=== PATIENT | female | born 1935 | race Caucasian/White ===

== ENCOUNTER 2021-05-10 12:47 | Inpatient (IN) | payer OTHER ==
[~2021-05-10] VITALS: Ht 162.6 cm; Wt 46.9 kg
--- NOTE | ~2021-05-10 | PROC ---
[address] [address] PROCEDURE REPORT Name: FREYA MCGOWAN Room: [address] ADM IN M.R.#: [id number] Admission: 05/10/21 Attend Phys: Chris Ratliff Discharge: Date of : 39 Report #: [id number] THIS REPORT FOR: cc: FAM - No family physician/PCP FAM - No family physician/PCP [facility],Medical Records Staff ~ For GI report, please see the Provation report in Perceptive 7 content. By: 1500Medical Records Staff JORGE /POLO
[2021-05-10 12:51] VITALS: BP 183/70
[2021-05-10 13:06] LABS: URINE BILIRUBIN NEGATIVE (Negative); URINE BLOOD TRACE (Negative); URINE CLARITY CLEAR; URINE COLOR YELLOW; URINE GLUCOSE-RANDOM NEGATIVE (Negative); URINE KETONES NEGATIVE (Negative); URINE LEUKOCYTES-REFLEX NEGATIVE (Negative); URINE NITRITE-REFLEX NEGATIVE (Negative); URINE PROTEIN NEGATIVE (Negative); URINE SPECIFIC GRAVITY <= 1.005 (1.005-1.030); URINE UROBILINOGEN 0.2 E.U./dl (0.2-1.0)
[2021-05-10 13:27] LABS: ABSOLUTE EOSINOPHILS 0.1 thou/uL (0.0-0.7); ABSOLUTE LYMPHOCYTES 1.8 thou/uL (0.8-5.3); ABSOLUTE MONOCYTES 0.5 thou/uL (0.0-1.2); ABSOLUTE NEUTROPHILS 4.4 thou/uL (1.6-8.1); BASOPHILS 0.6 %; EOSINOPHILS 1.2 %; HEMATOCRIT 40.9 % (37.0-47.0); HEMOGLOBIN 13.7 gm/dL (12.0-15.0); LYMPHOCYTES 26.8 %; MCH 29.5 pg (26.0-34.0); MCHC 33.5 g/dL (28.0-37.0); MONOCYTES 7.8 %; MPV 7.5 fl. (7.2-11.1); NUCLEATED RBCS 0 /100WBC; PLATELET COUNT* 299 thou/uL (150-400); POLYS 63.6 %; RBC 4.64 mil/uL (4.20-5.00); RDW-CV 12.7 % (10.5-14.5); WBC 6.9 thou/uL (4.0-11.0)
[2021-05-10 13:42] LABS: CALCIUM 9.3 mg/dL (8.5-10.1); CREATININE 0.9 mg/dL (0.6-1.3); POTASSIUM 3.7 mmol/L (3.5-5.1)
[2021-05-10 13:46] LABS: TOTAL BILIRUBIN 0.4 mg/dL (<0.1-1.0); TOTAL PROTEIN 7.4 g/dL (6.4-8.2)
[2021-05-10 17:06] VITALS: BP 160/72
[2021-05-10 17:30] VITALS: BP 155/64
[2021-05-10] MEDS ORDERED: LEVO-T75 MCG PO (18:53)
[2021-05-10] MEDS ORDERED: PROTONIX40 M2 PO (18:54)
[2021-05-10] MEDS ORDERED: ZESTRIL2.5 MG PO (18:55)
[2021-05-10] MEDS ORDERED: ASA81BEC PO (18:56)
[2021-05-10] MEDS ORDERED: TIZANIDINE HCL 22 M1 PO (18:58)
[2021-05-10 21:00] VITALS: BP 144/53
[2021-05-11 08:00] VITALS: BP 135/61
--- NOTE | 2021-05-11 10:30 | EKG ---
[place] [address] ELECTROCARDIOGRAM REPORT Name: FREYA MCGOWAN Room: [address] ADM IN M.R.#: [id number] Admission: 05/10/21 Attend Phys: Nayla Montilla Discharge: Date of : 39 Date of Service: 05/10/21 1311 Report #: [id number] THIS REPORT FOR: //name// [facility] ED Test Date: 2021-05-10 Test Time: 13:11:35 Pat Name: FREYA MCGOWAN Department: Room: [facility] Gender: F Maintenance Mechanic Telephone: TDS : 1935 Requested By: Amarjit Miller Order Number: [id number] MD: Murtaza Youssef Measurements Intervals [place] Rate: 67 P: 68 NC: 174 QRS: 78 QRSD: 141 T: 45 QT: 434 QTc: 458 Interpretive Statements Sinus rhythm Multiform ventricular premature complexes Right bundle branch block No previous ECG available for comparison Electronically Signed On 05-11-2021 10:30:38 CDT by Murtaza Youssef [email or web address] <ELECTRONICALLY SIGNED> By: Murtaza Youssef MD, [facility] 05/11/21 1030 1311 1311 Murtaza Youssef MD, [facility] /EPI
[2021-05-11 13:27] LABS: ABSOLUTE BASOPHILS 0.1 thou/uL (0.0-0.2); ABSOLUTE EOSINOPHILS 0.1 thou/uL (0.0-0.7); ABSOLUTE MONOCYTES 0.5 thou/uL (0.0-1.2); ABSOLUTE NEUTROPHILS 3.5 thou/uL (1.6-8.1); BASOPHILS 0.9 %; EOSINOPHILS 1.7 %; HEMATOCRIT 40.7 % (37.0-47.0); HEMOGLOBIN 13.6 gm/dL (12.0-15.0); LYMPHOCYTES 33.1 %; MCH 29.4 pg (26.0-34.0); MCHC 33.3 g/dL (28.0-37.0); MCV 88.3 fL (80.0-100.0); MONOCYTES 7.4 %; NUCLEATED RBCS 0 /100WBC; PLATELET COUNT* 281 thou/uL (150-400); POLYS 56.9 %; RBC 4.61 mil/uL (4.20-5.00); RDW-CV 12.8 % (10.5-14.5); WBC 6.2 thou/uL (4.0-11.0)
[2021-05-11 13:37] LABS: ALBUMIN 3.5 g/dL (3.4-5.0); CALCIUM 8.7 mg/dL (8.5-10.1); CREATININE 0.9 mg/dL (0.6-1.3); POTASSIUM 4.1 mmol/L (3.5-5.1); TOTAL BILIRUBIN 0.4 mg/dL (<0.1-1.0); TOTAL PROTEIN 6.6 g/dL (6.4-8.2)
--- NOTE | 2021-05-11 15:11 | 2DMMODE ---
[place] [address] 2 D/M-MODE ECHOCARDIOGRAM Name: FREYA MCGOWAN Room: [address] ADM IN M.R.#: [id number] Admission: 05/10/21 Attend Phys: Nayla Montilla Discharge: Date of : 39 Date of Service: 05/11/21 1511 Report #: [id number] THIS REPORT FOR: cc: TAWANDA - No family physician/PCP TAWANDA - No family physician/PCP Murtaza Youssef MD [facility] ~ APPROVED REPORT Study performed: 05/11/2021 13:42:02 EXAM: Comprehensive 2D, Doppler, and color-flow Echocardiogram Patient Location: In-Patient Room #: [facility] Status: routine BSA: 1.48 HR: 60 bpm BP: 135/61 mmHg Rhythm: NSR Other Information Study Quality: Good Indications Dyspnea 2D Dimensions IVSd: 8.75 (7-11mm) LVOT Diam: 19.50 (18-24mm) LVDd: 44.43 mm PWd: 8.66 (7-11mm) Ascending Ao: 27.25 (22-36mm) LVDs: 22.86 (25-40mm) Aortic Root: 29.01 mm Volumes Left Atrial Volume (Systole) LA ESV Index: 19.60 mL/m2 Aortic Valve AoV Peak Daniel.: 1.52 m/s AO Peak Gr.: 9.19 mmHg LVOT Max P.78 mmHg AO Mean Gr.: 4.96 mmHg LVOT Mean P.96 mmHg LVOT Max V: 1.48 m/s AO V2 VTI: 34.35 cm LVOT Mean V: 0.90 m/s ANTHONY (VTI): 3.02 cm2 LVOT V1 VTI: 34.76 [place] [address] 2 D/M-MODE ECHOCARDIOGRAM Name: [place], [place] Room: [address] IN M.R.#: [id number] Admission: 05/10/21 Attend Phys: Nayla Montilla Discharge: Date of : 39 Date of Service: 05/11/21 1511 Report #: [id number] Mitral Valve E/A Ratio: 0.96 MV Decel. Time: 335.65 ms MV E Max Daniel.: 0.88 m/s MV PHT: 97.34 ms MVA (PHT): 2.26 cm2 TDI E/Lateral E': 11.00 E/Medial E': 12.57 Medial E' Daniel.: 0.07 m/s Lateral E' Daniel.: 0.08 m/s Pulmonary Valve PV Peak Daniel.: 1.04 m/s PV Peak Gr.: 4.29 mmHg Tricuspid Valve RAP Estimate: 5.00 mmHg TR Peak Gr.: 26.48 mmHg RVSP: 31.00 mmHg PA Pressure: 31.00 mmHg Left Ventricle The left ventricle is normal size. There is normal LV segmental wall motion. There is normal left ventricular wall thickness. Left ventricular systolic function is normal. The left ventricular ejection fraction is within the normal range. LVEF is 60-65%. Grade I - abnormal relaxation pattern. Right Ventricle The right ventricle is normal size. The right ventricular systolic function is normal. Atria The left atrium size is normal. The right atrium size is normal. Aortic Valve Mild aortic valve sclerosis. No aortic regurgitation is present. There is no aortic valvular stenosis. Mitral Valve The mitral valve is normal in structure. Trace mitral regurgitation. No evidence of mitral valve stenosis. Tricuspid Valve The tricuspid valve is normal in structure. Trace [place] [address] 2 D/M-MODE ECHOCARDIOGRAM Name: FREYA MCGOWAN Room: [address] IN [facility].#: [id number] Admission: 05/10/21 Attend Phys: Nayla Montilla Discharge: Date of : 39 Date of Service: 05/11/21 1511 Report #: [id number] Pulmonic Valve The pulmonary valve is normal in structure. There is no pulmonic valvular regurgitation. Great Vessels The aortic root is normal in size. IVC is normal in size and collapses >50% with inspiration. Pericardium There is no pericardial effusion. <Conclusion> The left ventricle is normal size. There is normal left ventricular wall thickness. Left ventricular systolic function is normal. The left ventricular ejection fraction is within the normal range. LVEF is 60-65%. Grade I - abnormal relaxation pattern. The right ventricle is normal size. The left atrium size is normal. Mild aortic valve sclerosis. No aortic regurgitation is present. There is no aortic valvular stenosis. The mitral valve is normal in structure. The tricuspid valve is normal in structure. IVC is normal in size and collapses >50% with inspiration. There is no pericardial effusion. There is normal LV segmental wall motion. <ELECTRONICALLY SIGNED> By: Murtaza Youssef MD, FACC 05/11/211510 10 10 Murtaza Youssef MD, FACC /INF
[2021-05-11 16:00] VITALS: BP 123/65; BP 159/67
[2021-05-11 20:00] VITALS: BP 151/64
[2021-05-12] VITALS: BP 125/53
[2021-05-12 03:59] LABS: ABSOLUTE BASOPHILS 0.1 thou/uL (0.0-0.2); ABSOLUTE EOSINOPHILS 0.1 thou/uL (0.0-0.7); ABSOLUTE MONOCYTES 0.5 thou/uL (0.0-1.2); ABSOLUTE NEUTROPHILS 3.1 thou/uL (1.6-8.1); BASOPHILS 1.1 %; EOSINOPHILS 2.5 %; HEMATOCRIT 39.3 % (37.0-47.0); HEMOGLOBIN 12.9 gm/dL (12.0-15.0); LYMPHOCYTES 34.4 %; MCH 29.1 pg (26.0-34.0); MCHC 32.9 g/dL (28.0-37.0); MCV 88.6 fL (80.0-100.0); MONOCYTES 8.5 %; MPV 7.2 fl. (7.2-11.1); NUCLEATED RBCS 0 /100WBC; PLATELET COUNT* 262 thou/uL (150-400); POLYS 53.5 %; RBC 4.44 mil/uL (4.20-5.00); RDW-CV 12.9 % (10.5-14.5); WBC 5.9 thou/uL (4.0-11.0)
[2021-05-12 04:10] LABS: CALCIUM 8.5 mg/dL (8.5-10.1); CREATININE 0.8 mg/dL (0.6-1.3); MAGNESIUM 1.8 mg/dL (1.8-2.4); PHOSPHORUS* 3.5 mg/dL (2.5-4.9); POTASSIUM 3.6 mmol/L (3.5-5.1)
[2021-05-12 07:20] VITALS: BP 145/59
[2021-05-12 15:44] VITALS: BP 150/67
[2021-05-12 20:30] VITALS: BP 135/66
[2021-05-13 08:05] VITALS: BP 138/55
[2021-05-13 16:00] VITALS: BP 143/60
[2021-05-13 20:00] VITALS: BP 129/54
[2021-05-14 08:05] VITALS: BP 110/72
[2021-05-14 08:38] LABS: ABSOLUTE BASOPHILS 0.1 thou/uL (0.0-0.2); ABSOLUTE EOSINOPHILS 0.1 thou/uL (0.0-0.7); ABSOLUTE LYMPHOCYTES 1.5 thou/uL (0.8-5.3); ABSOLUTE MONOCYTES 0.3 thou/uL (0.0-1.2); ABSOLUTE NEUTROPHILS 3.3 thou/uL (1.6-8.1); EOSINOPHILS 2.3 %; HEMATOCRIT 40.1 % (37.0-47.0); HEMOGLOBIN 13.6 gm/dL (12.0-15.0); LYMPHOCYTES 28.4 %; MCH 29.5 pg (26.0-34.0); MCHC 33.9 g/dL (28.0-37.0); MCV 86.9 fL (80.0-100.0); MONOCYTES 6.5 %; MPV 7.2 fl. (7.2-11.1); NUCLEATED RBCS 0 /100WBC; PLATELET COUNT* 264 thou/uL (150-400); POLYS 61.8 %; RBC 4.61 mil/uL (4.20-5.00); RDW-CV 12.9 % (10.5-14.5); WBC 5.4 thou/uL (4.0-11.0)
[2021-05-14 09:01] LABS: ALBUMIN 3.4 g/dL (3.4-5.0); CALCIUM 8.5 mg/dL (8.5-10.1); CREATININE 0.7 mg/dL (0.6-1.3); POTASSIUM 3.1 mmol/L (3.5-5.1); TOTAL BILIRUBIN 0.5 mg/dL (<0.1-1.0); TOTAL PROTEIN 6.5 g/dL (6.4-8.2)
[2021-05-14 16:27] VITALS: BP 131/57
[2021-05-14 21:16] VITALS: BP 129/69
[2021-05-15 04:27] LABS: HEMATOCRIT 41.6 % (37.0-47.0); HEMOGLOBIN 14.2 gm/dL (12.0-15.0); MCH 29.9 pg (26.0-34.0); MCHC 34.2 g/dL (28.0-37.0); MCV 87.3 fL (80.0-100.0); MPV 7.2 fl. (7.2-11.1); RBC 4.76 mil/uL (4.20-5.00); WBC 5.3 thou/uL (4.0-11.0)
[2021-05-15 04:43] LABS: CALCIUM 9.1 mg/dL (8.5-10.1); CREATININE 0.8 mg/dL (0.6-1.3); MAGNESIUM 1.8 mg/dL (1.8-2.4)
[2021-05-15 07:09] LABS: GLYCOHEMOGLOBIN (HGB A1C) 5.7 % (4.8-5.6)
[2021-05-15 08:00] VITALS: BP 100/75
[2021-05-15 16:59] VITALS: BP 141/62
[2021-05-15 19:56] VITALS: BP 127/67
[2021-05-16 08:25] VITALS: BP 113/72
[2021-05-16 15:43] VITALS: BP 122/65
[2021-05-17 00:28] VITALS: BP 129/63
[2021-05-17] MEDS ORDERED: REGLAN 10 MG TA10 MG PO ×2 (07:06→07:09)
[2021-05-17] MEDS ORDERED: NORVASC5 MG PO (07:06)
[2021-05-17 08:00] VITALS: BP 123/68
[2021-05-17 16:00] VITALS: BP 138/68
[2021-05-18 08:00] VITALS: BP 123/62
[2021-05-18 11:41] VITALS: BP 123/62
[2021-05-18] MEDS ORDERED: AUGMENTIN 875-1 EACH PO (12:58)
[2021-05-18 13:09] VITALS: BP 123/62
[2021-05-18 14:50] VITALS: BP 123/62
== END 2021-05-18 14:45 | disposition home or self-care (01) | DRG 391 ==
LOC: M.ERS 12:47 → M.TBA-ER 13:24 → M.3W 13:24
PROVIDERS: Internal Medicine; Internal Medicine Gastroenterology; Physician Assistant; ADMIT Internal Medicine; ATTEND Internal Medicine
PROC: 0D758ZZ Dilation of Esophagus, Via Natural or Artificial Opening Endoscopic (ICD-10-PCS; principal; 2021-05-11)
DX: K31.84 Gastroparesis (principal); E43 Unspecified severe protein-calorie malnutrition; N13.30 Unspecified hydronephrosis; K22.10 Ulcer of esophagus without bleeding; Z68.1 Body mass index [BMI] 19.9 or less, adult; K22.2 Esophageal obstruction; R62.7 Adult failure to thrive; Z20.822 Contact with and (suspected) exposure to COVID-19; R63.4 Abnormal weight loss; R13.14 Dysphagia, pharyngoesophageal phase; N18.9 Chronic kidney disease, unspecified; J06.9 Acute upper respiratory infection, unspecified; E86.0 Dehydration; I12.9 Hypertensive chronic kidney disease with stage 1 through stage 4 chronic kidney disease, or unspecified chronic kidney disease; K44.9 Diaphragmatic hernia without obstruction or gangrene; Z82.49 Family history of ischemic heart disease and other diseases of the circulatory system; Z79.899 Other long term (current) drug therapy; Z23 Encounter for immunization